=== PATIENT | male | born 1945 | race Two or more races ===

== ENCOUNTER 2020-11-25 12:30 | Emergency (ER) | payer MEDICARE ==
--- NOTE | 2020-11-25 13:48 | ED ---
Recheck HPI - General Chief Complaint: Recheck/Abnormal Lab/Rx Stated Complaint: Wants Infusion Time Seen by Provider: 11/25/20 13:36 Source: patient, RN notes reviewed Mode of arrival: ambulatory Limitations: no limitations - History of Present Illness Initial Comments: 75-year-old male presents emergency Department with chief complaint of COVID-19. Patient states it is present on Wednesday is here for monoclonal antibody infusion. Symptoms started a few days prior. Patient denies any significant chest pain, shortness breath, fever, chills he states he has what he describes as a mild cold. Patient denies any GI symptoms no other complaints. - Related Data Allergies Allergy/AdvReac Type Severity Reaction Status Date / Time No Known Allergies Allergy Verified 11/25/20 13:06 Review of Systems ROS Statement: Those systems with pertinent positive or pertinent negative responses have been documented in the HPI. ROS Other: All systems not noted in ROS Statement are negative. Past Medical History Past Medical History: No Reported History History of Any Multi-Drug Resistant Organisms: None Reported Past Surgical History: No Surgical Hx Reported Past Psychological History: No Psychological Hx Reported Smoking Status: Former smoker Past Alcohol Use History: Occasional Past Drug Use History: Marijuana General Exam Limitations: no limitations General appearance: alert, in no apparent distress Head exam: Present: atraumatic, normocephalic, normal inspection Eye exam: Present: normal appearance, PERRL, EOMI. Absent: scleral icterus, conjunctival injection, periorbital swelling ENT exam: Present: normal exam, normal oropharynx, mucous membranes moist Neck exam: Present: normal inspection, full ROM. Absent: tenderness, meningismus, lymphadenopathy Respiratory exam: Present: normal lung sounds bilaterally. Absent: respiratory distress, wheezes, rales, rhonchi, stridor Cardiovascular Exam: Present: regular rate, normal rhythm, normal heart sounds. Absent: systolic murmur, diastolic murmur, rubs, gallop, clicks Neurological exam: Present: alert, oriented X3, CN II-XII intact Skin exam: Present: warm, dry, intact, normal color. Absent: rash Course Vital Signs 11/25/20 13:03 Temperature 98.1 F Pulse Rate 84 Respiratory 22 Rate Blood Pressure 102/66 O2 Sat by Pulse 97 Oximetry Medical Decision Making - Medical Decision Making Patient received monoclonal antibodies will be discharged in stable condition. Disposition Clinical Impression: COVID-19 Disposition: HOME SELF-CARE Condition: Stable Instructions (If sedation given, give patient instructions): Coronavirus Disease 2019 (COVID-19) Additional Instructions: Please return to the Emergency Department if symptoms worsen or any other concerns. Is patient prescribed a controlled substance at d/c from ED?: No Referrals: Nonstaff,Physician [Primary Care Provider] - 1-2 days
[2020-11-25] MEDS ORDERED: SODIUM CHLORIDE 0.9% 50 ML IVPB ONE (14:00)
[2020-11-25] MEDS ORDERED: CASIRIVIMAB (REGN10933) (EUA) 600 MG, IMDEVIMAB (REGN10987) (EUA) 600 MG in SODIUM CHLO... IVPB ONE (14:30)
[2020-11-25 16:36] VITALS: RESP 18
[2020-11-25 16:38] VITALS: BP 108/74; PULSE 78; TEMP 98.8
== END 2020-11-25 16:38 | disposition home or self-care (01) ==
LOC: EC 12:30 → SUPCPDRO 12:30 → EC 16:38
DX: U07.1 COVID-19 (principal); F12.90 Cannabis use, unspecified, uncomplicated; Z87.891 Personal history of nicotine dependence
CPT/HCPCS: 96365; 99283; Q0243

== ENCOUNTER → 2022-05-06 | Outpatient (CLI) | payer MEDICARE ==
--- NOTE | 2022-05-06 08:19 | US ---
EXAMINATION TYPE: US duplex aorta DATE OF EXAM: 05/06/2022 COMPARISON: NONE CLINICAL HISTORY: Z13.6 SCREENING FOR CARDIOVASCULAR DISORDERS. family history of AAA per pt TECHNIQUE: Multiple sonographic images of the abdominal aorta are obtained. FINDINGS: EXAM MEASUREMENTS: Abdominal Aorta: Proximal: 2.1 x 1.8cm Mid: 1.9 x 1.7cm Distal: 2.0 x 1.8cm Bifurcation: not seen due to overlying bowel gas REGIONAL SAFETY MANAGER NOTES: limited visualization of the aorta due to overlying bowel gas; calcified hilton not ed, unable to see distal/bifurcation area IMPRESSION: 1. No suspicious changes to suggest aneurysm or fusiform prominence of the abdominal aorta on screeni ng ultrasound.
== END | disposition home or self-care (01) ==
LOC: RADUSWWP 07:47
PROVIDERS: ATTEND Family Medicine
DX: Z13.6 Encounter for screening for cardiovascular disorders (principal)
CPT/HCPCS: 93979

== ENCOUNTER 2024-03-29 10:43 | Outpatient (CLI) | payer MEDICARE ==
[~2024-03-29 10:43] MED LIST: SODIUM CHLORIDE 0.9% 250 ML in EMPTY BAG 1 BAG IV PRN
[2024-03-29 11:02] VITALS: BP 137/73; PULSE 111; RESP 18; TEMP 98.3
[2024-03-29] MEDS: SODIUM CHLORIDE 0.9% 500 ML 500 ML in EMPTY BAG 1 BAG IV PRN ×2 (11:07→11:40)
[2024-03-29 13:09] LABS: African American GFR (CKD) 45 (>60 ml/min/1.73 sqM); Anion Gap 11 mmol/L; Blood Urea Nitrogen 36 mg/dL (9-20); Calcium 8.2 mg/dL (8.4-10.2); Carbon Dioxide 19 mmol/L (22-30); Chloride 111 mmol/L (98-107); Glucose 85 mg/dL (74-99); Non-African American GFR(CKD) 39 (>60 ml/min/1.73 sqM); Sodium 141 mmol/L (137-145)
[2024-03-29 13:21] LABS: Potassium 5.7 mmol/L (3.5-5.1)
== END 2024-03-29 14:23 ==
LOC: PROCWHC3 10:43
PROVIDERS: ATTEND Surgery
DX: N17.9 Acute kidney failure, unspecified (principal); I82.402 Acute embolism and thrombosis of unspecified deep veins of left lower extremity
CPT/HCPCS: 80048; 96360

== ENCOUNTER → 2024-04-20 | Outpatient (CLI) | payer MEDICARE ==
--- NOTE | 2024-04-20 17:39 | CA ---
Transthoracic Echo Report Name: Hieu Christiansen Age: 78 Gender: M : 1945 Exam Date: 04/20/2024 13:04 Exam Location: [facility] Ht (in): 68 Wt (lb): 168 Ordering Physician: Becky Lemons MD Attending/Referring Phys: Alex Snyder MD Associate Property Manager Thea Martinez RDCS Procedure CPT: Indications: Q85.98 Lymphoma Cardiac Hx: Technical Quality: Fair Contrast 1: Total Dose (mL): Contrast 2: Total Dose (mL): MEASUREMENTS (Male / Female) Normal Values 2D ECHO LV Diastolic Diameter PLAX 3.9 cm 4.2 - 5.9 / 3.9 - 5.3 cm LV Systolic Diameter PLAX 2.9 cm IVS Diastolic Thickness 1.1 cm 0.6 - 1.0 / 0.6 - 0.9 cm LVPW Diastolic Thickness 1.2 cm 0.6 - 1.0 / 0.6 - 0.9 cm LV Relative Wall Thickness 0.6 RV Internal Dim ED PLAX 2.0 cm LA Systolic Diameter LX 3.0 cm 3.0 - 4.0 / 2.7 - 3.8 cm LV Diastolic Volume MOD BP 36.4 cm??? 67 - 155 / 56 - 104 cm??? LV Systolic Volume MOD BP 16.1 cm??? 22 - 58 / 19 - 49 cm??? LV Ejection Fraction MOD BP 55.9 % >= 55 % LV Cardiac Index MOD BP 911.4 cm???/min???m??? LV Diastolic Volume MOD 4C 34.8 cm??? LV Systolic Volume MOD 4C 16.6 cm??? LV Ejection Fraction MOD 4C 52.3 % LV Cardiac Index MOD 4C 814.8 cm???/min???m??? LV Diastolic Length 4C 7.3 cm LV Systolic Length 4C 6.4 cm LV Diastolic Volume MOD 2C 37.6 cm??? LV Systolic Volume MOD 2C 13.8 cm??? LV Ejection Fraction MOD 2C 63.3 % LV Cardiac Index MOD 2C 1065.9 cm???/min???m??? LV Diastolic Length 2C 6.9 cm LV Systolic Length 2C 5.6 cm M-MODE Aortic Root Diameter MM 3.4 cm LA Systolic Diameter MM 3.4 cm LA Ao Ratio MM 1.0 AV Cusp Separation MM 1.5 cm DOPPLER Mitral E Point Velocity 59.3 cm/s Mitral A Point Velocity 85.8 cm/s Mitral E to A Ratio 0.7 MV Deceleration Time 273.1 ms MV E' Velocity 7.8 cm/s Mitral E to MV E' Ratio 7.6 FINDINGS Left Ventricle Left ventricular ejection fraction is estimated at 55-60 %. Normal left ventricular systolic function with no obvious regional wall motion abnormalities. Left ventricular cavity size normal. Left ventricular wall thickness normal. Average global longitudinal strain of the left ventricle with a value of - 14.5 %. Right Ventricle Normal right ventricular size and function. Right ventricular systolic pressure within normal limits. Right Atrium Normal right atrial size. Left Atrium Normal left atrial size. Mitral Valve Structurally normal mitral valve. Trace to mild mitral regurgitation. No mitral stenosis. Aortic Valve Trileaflet aortic valve. No aortic valve stenosis or regurgitation.aortic valve sclerosis. Tricuspid Valve Structurally normal tricuspid valve. Trace tricuspid regurgitation. No tricuspid stenosis. Pulmonic Valve Structurally normal pulmonic valve. No pulmonic stenosis. Pericardium No pericardial or pleural effusion. Aorta Normal size aortic root and proximal ascending aorta. CONCLUSIONS 1. Normal left ventricular size and systolic function 2. Average global longitudinal strain -14.5% 3. Trace to mild mitral and tricuspid regurgitation Previewed by: Dr. Geno Chapman MD (Electronically Signed) Final Date: 20 April 2024 17:39
== END | disposition home or self-care (01) ==
LOC: RADECHMAIN 12:42
PROVIDERS: ATTEND Internal Medicine
DX: Z01.818 Encounter for other preprocedural examination (principal); I08.1 Rheumatic disorders of both mitral and tricuspid valves; I82.409 Acute embolism and thrombosis of unspecified deep veins of unspecified lower extremity; C85.98 Non-Hodgkin lymphoma, unspecified, lymph nodes of multiple sites; Z71.3 Dietary counseling and surveillance
CPT/HCPCS: 93306

== ENCOUNTER → 2024-07-20 | Outpatient (CLI) | payer MEDICARE ==
--- NOTE | 2024-07-21 18:37 | PE ---
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 Images are reviewed on the computer in the coronal, axial, and sagittal planes. Reconstructed rotating images are created on independent workstation an d reviewed on the computer. A non-contrast CT is performed in conjunction with the PET scan. Glucos e level 99 mg/dL CT DLP: 1043 mGycm, Automated exposure control for dose reduction was used. COMPARISON: CT 03/29/2024, PET/CT 04/23/2024, MRI: None FINDINGS: Mediastinal SUV mean is 2.4. Hepatic parenchyma SUV mean is 2.. SKULL BASE AND NECK: No suspicious radiotracer activity. Bilateral neck lymph nodes with mild uptake in prior are no longer visualized. CHEST, MEDIASTINUM, AND HILAR REGION: No suspicious radiotracer activity. ABDOMEN AND PELVIS: Suspicious uptake identified; examples include: Overall decrease in lymphadenopathy and soft tissue masses compared to prior 04/23/2024. * Soft tissue in the right inguinal region with mild uptake max SUV 4.7 measuring 27 x 30 mm. Previo usly max SUV 12.1 * Confluent soft tissue throughout the retroperitoneum with more focal uptake at the level of the le ft kidney near the aorta max SUV 14.7 measuring 28 mm. Previously max SUV 13.5 MUSCULOSKELETAL STRUCTURES: No suspicious radiotracer activity. OTHER CT: Right chest wall Goheag-d-Dldp with tip to remain in the superior vena cava. Mild atheroscl erosis of the arterial vasculature including the coronary arteries and carotid bifurcations. Leftward deviation of the nose and nasal septum suggestive of prior injury. Severe centrilobular emphysema ch anges in a background of interstitial lung disease and honeycombing. Scattered colonic diverticula. B ilateral ureteral stents proximal and inferior pigtail is in appropriate position. Prostatomegaly. Fa t-containing inguinal hernia on the left. Confluent soft tissue extends along the aorta down into the pelvis bilaterally. IMPRESSION: Positive response with decrease in size of lymphadenopathy in the abdomen and pelvis and right inguin al region. There remains 2 areas of more focal increased radiotracer uptake involving the right ingui nal region and a lymph node at the level of the left kidney. [facility], , 07/21/2024 6:34 PM
== END | disposition home or self-care (01) ==
LOC: RADPETMAIN 11:01
PROVIDERS: ATTEND Internal Medicine
DX: C82.98 Follicular lymphoma, unspecified, lymph nodes of multiple sites (principal); J43.2 Centrilobular emphysema
CPT/HCPCS: 78815; A9552